=== PATIENT | female | born 1945 | race Caucasian/White ===

== ENCOUNTER → 2019-11-25 15:11 | Outpatient (BNVA) | payer MEDICARE, SELFPAY | PROVIDERS: Family Provider Family Medicine; PCP Family Medicine; Visit Provider Family Medicine | DX: F41.9 Anxiety disorder, unspecified (principal); I10 Essential (primary) hypertension | CPT/HCPCS: 80053; 80061; 85025 ==

== ENCOUNTER → 2020-01-22 11:12 | Outpatient (BNVA) | payer MEDICARE, SELFPAY | PROVIDERS: Family Provider Family Medicine; PCP Family Medicine; Visit Provider Family Medicine | DX: F41.9 Anxiety disorder, unspecified (principal); R32 Unspecified urinary incontinence; N89.8 Other specified noninflammatory disorders of vagina | CPT/HCPCS: 81000 ==

== ENCOUNTER → 2020-02-17 11:45 | Outpatient (BNVA) | payer MEDICARE, SELFPAY | PROVIDERS: Family Provider Family Medicine; PCP Family Medicine; Visit Provider Nurse Practitioner Family | DX: N89.8 Other specified noninflammatory disorders of vagina (principal); R32 Unspecified urinary incontinence; B37.3 Candidiasis of vulva and vagina | CPT/HCPCS: 81000 ==

== ENCOUNTER → 2020-05-24 11:58 | Outpatient (BNVA) | payer MEDICARE, SELFPAY | PROVIDERS: Family Provider Family Medicine; PCP Family Medicine; Visit Provider Family Medicine | DX: E78.5 Hyperlipidemia, unspecified (principal); F32.9 Major depressive disorder, single episode, unspecified; F41.9 Anxiety disorder, unspecified | CPT/HCPCS: 36415; 80053; 80061 ==

== ENCOUNTER 2023-04-03 11:47 | Outpatient (CLI) | payer MEDICARE, SELFPAY ==
--- NOTE | 2023-04-03 12:00 | XR_ITS ---
WS: [email or web address] EXAMINATION: XR lumbar spine f/e only [id number] L-SPINE : 3 views REASON FOR EXAM: ANESTHESIA OF SKIN COMPARISON: None available. ORDER DATE: 04/03/2023 12:12 PM FINDINGS: The lumbar vertebral bodies and the disc spaces are normal in width. In the lumbar vertebra, there i s no evidence of compression deformities. Bones are demineralized. Advanced degenerative disc disease at L5-S1. Less than 2 mm retrolisthesis of L4. No fractures. Prominent atherosclerotic aortic change. Prior cholecystectomy. XR/XR lumbar spine f/e only [id number] IMPRESSION: 1. No lumbar spine instability. 2. Advanced degenerative disc disease L5-S1.
== END 2023-04-03 11:48 | disposition home or self-care (01) ==
LOC: RAD 11:54
PROVIDERS: PCP Family Medicine; Visit Provider Nurse Practitioner
DX: R20.0 Anesthesia of skin (principal); M51.37 Other intervertebral disc degeneration, lumbosacral region
CPT/HCPCS: 72120

== ENCOUNTER 2023-04-26 09:46 | Outpatient (CLI) | payer MEDICARE, SELFPAY ==
--- NOTE | 2023-04-26 09:54 | MR_ITS ---
WS: [id number] MRI LUMBAR SPINE NONCONTRAST TECHNIQUE: Sagittal T1, T2 and STIR imaging. Axial T1 and T2 imaging. CLINICAL INFORMATION: NUMBNESS IN FEET COMPARISON: MRI 2018 FINDINGS: Mild compression superior endplate in the mid thoracic spine at T4. This could be further evaluated w ith thoracic spine MRI. This is new since MRI in 2018. Small central protrusions at T11-12 and T12-L1 . Moderate left T12-L1 foraminal narrowing with a left foraminal protrusion impinges the exiting left T12 nerve root. L1-L2: Mild annular bulging. Narrowing of the subarticular recess. Mild facet arthropathy. Moderate l eft foraminal narrowing. L2-L3: Mild annular bulging. Mild central canal stenosis. Narrowing of the right subarticular recess. Mild facet arthropathy. Mild foraminal narrowing. L3-L4: Slight anterolisthesis. Mild disc bulging with moderate central canal stenosis. Moderate facet arthropathy. Mild left greater than right foraminal narrowing. L4-L5: Mild bulging with a small annular fissure. Moderate to severe central canal stenosis progresse d compared to previous. Impingement traversing L5 nerve roots. Mild bilateral foraminal narrowing. L5-S1: Mild disc bulging with slight effacement of ventral thecal sac. Mild to moderate bilateral for aminal narrowing. Mild facet arthropathy. Right renal cysts the largest measuring 14 mm. Visualized pelvic bony structures: Normal. Paravertebral soft tissues: Normal. IMPRESSION: 1. Moderate to severe central canal stenosis L4-5 progressed compared to previous. 2. Moderate central canal stenosis L3-4 also progressed compared to previous. 3. Mild central canal stenosis L2-3 progressed compared to previous. 4. Left T12-L1 foraminal protrusion with moderate left foraminal narrowing appears progressed. 5. Multilevel foraminal narrowing described above. 6. Anterior wedging in the mid thoracic spine at T4 appears new from the prior MRI. This can be furt her evaluated with thoracic spine MRI.
== END 2023-04-26 09:47 | disposition home or self-care (01) ==
LOC: RAD 09:48
PROVIDERS: PCP Family Medicine; Visit Provider Nurse Practitioner
DX: R20.0 Anesthesia of skin (principal); M48.061 Spinal stenosis, lumbar region without neurogenic claudication; M48.54XA Collapsed vertebra, not elsewhere classified, thoracic region, initial encounter for fracture
CPT/HCPCS: 72148

== ENCOUNTER 2023-05-25 09:08 | Outpatient (CLI) | payer MEDICARE, SELFPAY ==
--- NOTE | 2023-05-25 | US_ITS ---
WS: [id number] RENAL ULTRASOUND HISTORY: Renal Cysts COMPARISON: None available. TECHNIQUE: 2-D and color Doppler imaging of the kidney submitted. Right kidney: 10.1 cm x 4.8 cm x 4.8 cm. Cortex: 1.1 cm Normal size kidney. Simple cortical cyst mid kidney 1.7 x 1.6 x 1.8 cm. No hydronephrosis. Left kidney: 11.0 cm x 4.7 cm x 5.2 cm. Cortex: 1.4 cm Normal echogenicity with no hydronephrosis or mass. Aorta: Normal. Urinary Bladder: Normal distention. IMPRESSION: 1. No hydronephrosis or solid renal mass. 2. Simple cyst RIGHT kidney, maximum diameter 1.8 cm.
--- NOTE | 2023-05-25 | USCV_ITS ---
Joi Herndon Age: 77 Gender: F : 1945 Exam Date: 05/25/2023 09:35 Ordering Phys: Deb Tamayo Technologist: GERARDO Exam Location: [facility] Indication: Family HX of AAA HISTORY: Diameter (cm) AP x Transverse x Length Velocity (cm/s) Waveform Prox Aorta: 1.69 x 1.59 x 60.90 Triphasic Mid Aorta: 1.75 x 1.64 x 66.20 Triphasic Distal Aorta: 1.59 x 1.64 x 66.80 Triphasic Right Iliac Prox: 1.08 x 1.46 x 74.60 Triphasic Left Iliac Prox: 1.03 x 1.22 x 100.80 Triphasic Stent Prox Landing x x Aneurysmal Sac Max x x Lt Lat Sac Dim Rt Lat Sac Dim Stent Dist Landing x x Right Iliac Stent x x Left Iliac Stent x x Right Renal Art Left Renal Art FINDINGS: Comparison: none available. Ectatic abdominal aorta with evidence of atherosclerotic plaque noted. No evidence of abdominal aortic aneurysm. No significant stenosis noted in the abdominal aorta. CONCLUSIONS Ectatic abdominal aorta with evidence of atherosclerotic plaque noted. No evidence of abdominal aortic aneurysm. Dr. Kristin Chapman DO (Electronically Signed) Final Date: 25 May 2023 13:05 S
== END 2023-05-25 09:09 | disposition home or self-care (01) ==
LOC: RAD 09:10
PROVIDERS: PCP Family Medicine; Visit Provider Nurse Practitioner
DX: N28.1 Cyst of kidney, acquired (principal); Z82.49 Family history of ischemic heart disease and other diseases of the circulatory system; I77.811 Abdominal aortic ectasia
CPT/HCPCS: 76706; 76770

== ENCOUNTER → 2023-10-05 15:41 | Outpatient (BNVA) | payer MEDICARE, SELFPAY | PROVIDERS: PCP Family Medicine; Visit Provider Nurse Practitioner | DX: M25.552 Pain in left hip (principal); M16.12 Unilateral primary osteoarthritis, left hip | CPT/HCPCS: 73502 ==

== ENCOUNTER 2023-12-05 11:08 | Outpatient (CLI) | payer MEDICARE, SELFPAY ==
--- NOTE | 2023-12-05 11:14 | MR_ITS ---
WS: [id number] MRI CERVICAL SPINE NONCONTRAST HISTORY: Back pain COMPARISON: None available. Technique: Multiplanar, multisequence noncontrast imaging of the cervical spine. C3 retrolisthesis by 3 mm. C4 retrolisthesis by 1.3 mm. C7 anterolisthesis by 2.8 mm. Disc spaces are all narrowed and desiccated. Osteophytic ridging around all the vertebral bodies. No fractures or marrow edema. Craniocervical junction, C1 and C2 relationship, odontoid process and soft tissues are normal. T4 anterior wedging by 20%. No acute marrow edema. No signal abnormality within the cervical cord. C2-C3: Normal. C3-C4: Osteophytic ridging and facet arthritis. Moderate LEFT foraminal stenosis predominantly due to an osteophyte. C4-C5: Diffuse annular disc bulging with osteophytic ridging and facet arthritis. Mild central and bi lateral foraminal stenosis. C5-C6: Diffuse osteophytic ridging and facet arthritis. Moderate to severe central with severe LEFT a nd moderate RIGHT foraminal stenosis. C6-C7: Mild annular disc bulging with osteophytic ridging with facet arthritis. Mild LEFT foraminal s tenosis. C7-T1: Mild anterolisthesis of C7. Facet joint arthritis. Mild foraminal stenosis. Paraspinal soft tissue are normal. IMPRESSION: 1. Advanced cervical spondylosis and degenerative disc disease. 2. Central and foraminal stenosis throughout the cervical spine due to combination of disc, osteophy tosis and facet disease. 3. C3-4: Moderate LEFT foraminal stenosis predominantly due to osteophyte. 4. C4-5: Mild central and bilateral foraminal stenosis. 5. C5-6: Moderate to severe central with severe LEFT and moderate RIGHT foraminal stenosis. Predomin ately due to osteophyte. 6. C6-7: Mild LEFT foraminal stenosis. 7. C7-T1: Mild bilateral foraminal stenosis.
--- NOTE | 2023-12-05 11:15 | MR_ITS ---
WS: [email or web address] MRI THORACIC SPINE noncontrast HISTORY: Back pain COMPARISON: None available. TECHNIQUE: Multiplanar sequences are performed in sagittal and axial planes. Mild increase in the thoracic kyphosis. Chronic 20% anterior compression fracture of T4. Mild curvatu re and scoliosis. No acute fractures or marrow edema. No signal abnormality within the cord. T1-2: Mild foraminal narrowing and facet arthritis. T2-3: Bilateral facet arthritis, RIGHT greater than LEFT. Moderate RIGHT foraminal stenosis. T3-4: Shallow central disc protrusion with mild lateral facet arthritis and stenosis. T4-5: Mild bilateral foraminal stenosis. T5-6: Mild facet arthritis and LEFT foraminal stenosis. T6-7: Normal. T7-8: Mild bilateral facet joint arthritis and foraminal stenosis. T8-9: Mild bilateral foraminal stenosis and facet arthritis. T9-10: Moderate bilateral facet joint arthritis and foraminal stenosis, RIGHT greater than LEFT. T10-11: Mild RIGHT and moderate LEFT foraminal stenosis and facet arthritis. T11-12: Mild bilateral facet arthritis and LEFT foraminal stenosis. T12-L1: LEFT foraminal disc protrusion was described on the prior MRI of 04/26/2023. Disc protrusion i s reidentified with moderate LEFT foraminal stenosis. IMPRESSION: 1. Multilevel facet joint arthritis and degenerative disc disease throughout the thoracic spine. Mil d to moderate facet joint arthritis and stenoses. 2. Moderate RIGHT foraminal stenosis at T2-3. 3. Moderate bilateral facet arthritis at T9-10 with RIGHT greater than LEFT foraminal stenosis. 4. T10-11: Moderate LEFT foraminal stenosis and facet arthritis. 5. Reidentified is the previously described LEFT foraminal disc protrusion at T12-L1. This disc prot rusion is causing moderate LEFT foraminal stenosis.
== END 2023-12-05 11:09 | disposition home or self-care (01) ==
LOC: RAD 11:08
PROVIDERS: PCP Family Medicine; Visit Provider Physician Assistant Surgical
DX: M54.9 Dorsalgia, unspecified (principal); M51.34 Other intervertebral disc degeneration, thoracic region; M48.04 Spinal stenosis, thoracic region; M51.25 Other intervertebral disc displacement, thoracolumbar region
CPT/HCPCS: 72141; 72146

== ENCOUNTER 2024-08-21 15:41 | Emergency (ER) | payer MEDICARE, SELFPAY ==
[2024-08-21] VITALS (44 sets, daily range): BP systolic 148–197; BP diastolic 81–97; PULSE 60–79; RESP 14–25; TEMP 36.4; O2SAT 91–98; BMI 23.0
--- NOTE | 2024-08-21 17:08 | CTR_ITS ---
PROCEDURE INFORMATION: Exam: CT Head Without Contrast Exam date and time: 08/21/2024 6:11 PM Age: 79 years old Clinical indication: Pain; Headache not specified; Additional info: Headache, right vision changes TECHNIQUE: Imaging protocol: Computed tomography of the head without contrast. Radiation optimization: All CT scans at this facility use at least one of these dose optimization techniques: automated exposure control; mA and/or kV adjustment per patient size (includes targeted exams where dose is matched to clinical indication); or iterative reconstruction. COMPARISON: MR cervical spin wo con* [id number] 12/05/2023 11:36 AM RADIATION DOSE METRICS: Total DLP (mGy-cm): 1010.95 FINDINGS: Brain: There is mild cerebral atrophy. There are mild deep white matter microangiopathic ischemic changes. No acute hemorrhage is identified. No mass or mass effect is identified. Cerebral ventricles: The ventricles are prominent secondary to atrophy. Paranasal sinuses: The paranasal sinuses are clear. Mastoid air cells: The mastoid air cells are clear. Bones: No acute osseous abnormalities are seen. Soft tissues: The soft tissues are within normal limits. CT/CT head wo con* [id number] IMPRESSION: 1. No acute intracranial pathology. 2. Senescent changes.
--- NOTE | 2024-08-21 17:18 | ED_ITS ---
HPI - Headache 2 General: Chief Complaint: Headache Stated Complaint: pains in head and Right eye blurry vision,pressure Time Seen by Provider: 08/21/24 17:06 History of Present Illness: 79-year-old female who presents to the e mergency room with a headache. She has had some intermittent visual changes and a right sided headache for about 4 days now. She went to see her PCP who evaluated her and sent her to the emergency room for CT scan. Vision is grossly normal on exam. She has no focal motor deficits. No slurred speech. No facial droop. Said no cough. No fevers. No chest pain. No abdominal pain. No nausea or vomiting. Related Data Home Medications Medication Instructions Recorded Confirmed Saccharomyces boulardii 250 mg 250 mg PO DAILY 09/23/19 07/28/20 capsule (Daily Probiotic (S. boulardii)) magnesium hydroxide 400 mg/5 mL 15 ml PO BID PRN 09/23/19 07/28/20 oral suspension (Milk of Magnesia) omega 4-vvs-egj-fish oil 1,000 mg 1 cap PO BID 09/23/19 07/28/20 (120 mg-180 mg) capsule (Fish Oil) dupilumab 300 mg/2 mL subcutaneous See Rx Instructions SUBCUT .COMPLEX 01/22/20 07/28/20 syringe (Dupixent) magnesium 200 mg tablet 200 mg PO DAILY 07/28/20 07/28/20 Previous Rx's Medication Instructions Recorded clotrimazole 1 % vaginal cream 1 appful vaginal .hs 14 days #45 02/17/20 grams triamcinolone acetonide 0.025 % 1 applic topical TID 2 days #15 02/17/20 topical ointment grams cetirizine 10 mg capsule (Zyrtec) 10 mg PO DAILY PRN allergy 07/28/20 symptoms #30 caps clonazepam 0.5 mg tablet 0.5 mg PO .COMPLEX PRN anxiety #45 07/28/20 tabs fluticasone propionate 50 2 spray intranasal Q12H PRN nasal 07/28/20 mcg/actuation nasal congestion #9.9 mL spray,suspension (Flonase Allergy Relief) omeprazole 20 mg capsule,delayed 20 mg PO DAILY #30 caps 02/03/21 release clonidine HCl 0.1 mg tablet 0.1 mg PO DAILY #30 tabs 03/22/21 sertraline 100 mg tablet 150 mg (1.5 x 100 mg) PO Q24H #45 06/20/21 tabs Allergies Allergy/AdvReac Type Severity Reaction Status Date / Time Sulfa (Sulfonamide Allergy Intermediate hives Verified 08/21/24 15:54 Antibiotics) Review of Systems 2 Narrative: Constitutional symptoms: Negative except as documented in HPI. Skin symptoms: Negative except as documented in HPI. Eye symptoms: Negative except as documented in HPI. ENMT symptoms: Negative except as documented in HPI. Respiratory symptoms: Negative except as documented in HPI. Cardiovascular symptoms: Negative except as documented in HPI. Gastrointestinal symptoms: Negative except as documented in HPI. Genitourinary symptoms: Negative except as documented in HPI. Musculoskeletal symptoms: Negative except as documented in HPI. Neurologic symptoms: Negative except as documented in HPI. Psychiatric symptoms: Negative except as documented in HPI. Endocrine symptoms: Negative except as documented in HPI. PFSH ED 2 PFSH: Medical History Anxiety Depressed Social History Smoking and tobacco/nicotine status: never used tobacco/nicotine Alcohol intake: current Alcohol intake frequency: 0-2 Drinks per Day Current gender identity: Female Physical Exam 2 Narrative: EXAM NARRATIVE: General: Alert, no acute distress. Skin: Warm, dry. Head: Normocephalic, atraumatic. Neck: Supple, trachea midline. Eye: Extraocular movements are intact. Ears, nose, mouth and throat: mucosa moist. Cardiovascular: Regular, Normal peripheral perfusion. Respiratory: Lungs are clear to auscultation, respirations are non-labored, breath sounds are equal, Symmetrical chest wall expansion. Gastrointestinal: Soft, Nontender, Non distended Musculoskeletal: Normal ROM, no deformity. Neurological: Alert and oriented, No focal neurological deficit observed. Psychiatric: Cooperative, appropriate mood & affect. Course 2 Vital Signs: Vital signs: Vital Signs Temperature 97.5 F L 08/21/24 15:48 Pulse Rate 67 08/21/24 20:30 Respiratory Rate 17 08/21/24 20:30 Blood Pressure 165/82 08/21/24 20:25 Pulse Oximetry 96 08/21/24 20:30 Oxygen Delivery Me thod Room Air 08/21/24 15:48 MDM - Headache Medical Decision Making Medical decision making: Differential diagnosis for this patient presenting with severe headache including but not limited to and based on the above HPI, review of systems and physical exam: Intracranial hemorrhage, stroke, migraine, cluster headache, infections such as influenza, covid Orders placed to evaluate differential diagnosis based on the above differential, HPI and physical exam CT head: Senescent changes. No acute intracranial process. no intracranial hemorrhage, no evidence of infarct. no evidence of acute fracture.This was reviewed and interpreted by myself the ER physician. Lab Review: Laboratory results were reviewed and interpreted by myself the emergency room physician. Lab work is fairly unremarkable I reviewed the patient's medical record. Reexamination: Patient remained stable. No increased work of breathing. No altered mental status. No focal motor deficits. We discussed the likely next step would be to follow-up with a translator and interpreter for a thorough eye exam. Assessment and plan: Headache Visual disturbance - Discharged home - Discussed plan with patient. Answered any questions. - Evaluation and treatment of this problem were appropriate in the emergency setting. Lab Data 08/21/24 19:16 08/21/24 19:[address] 08/21/24 17:08 IMPRESSION: 1. No acute intracranial pathology. 2. Senescent changes. Laboratory Results WBC 5.08 10^3/uL (3.29-11.43) 08/21/24 19:16 RBC 3.82 10^6/uL (3.85-5.65) L 08/21/24 19:16 Hgb 11.80 g/dL (11.27-16.99) 08/21/24 19:16 Hct 37.1 % (36-47) 08/21/24 19:16 MCV 97.1 fl (85-98) 08/21/24 19:16 MCH 30.9 pg (27-33) 08/21/24 19:16 MCHC 31.8 g/dL (30-55) 08/21/24 19:16 RDW 12.9 % (12.1-15.1) 08/21/24 19:16 Plt Count 294 10^3/cmm (157-399) 08/21/24 19:16 MPV 9.4 fL (7.4-10.4) 08/21/24 19:16 Neut % (Auto) 51.3 % 08/21/24 19:16 Lymph % (Auto) 37.8 % 08/21/24 19:16 [place] % (Auto) 7.1 % 08/21/24 19:16 Eos % (Auto) 2.8 % 08/21/24 19:16 Baso % (Auto) 0.8 % 08/21/24 19:16 Neut # (Auto) 2.61 10^3/uL (1.8-7.7) 08/21/24 19:16 Lymph # (Auto) 1.9 10^3/uL (0.8-4.8) 08/21/24 19:16 [place] # (Auto) 0.4 10^3/uL (0.2-0.9) 08/21/24 19:16 Eos # (Auto) 0.1 10^3/uL (0.0-0.8) 08/21/24 19:16 Baso # (Auto) 0.0 10^3/uL (0.0-0.1) 08/21/24 19:16 Nucleated RBC % (auto) 0 % 08/21/24 19:16 Nucleated RBCs # 0.0 /100WBC 08/21/24 19:16 Sodium 138 mmol/L (136-145) 08/21/24 19:16 Potassium 4.2 mmol/L (3.5-5.1) 08/21/24 19:16 Chloride 103 mmol/L (98-107) 08/21/24 19:16 Carbon Dioxide 24 mmol/L (22-29) 08/21/24 19:16 Anion Gap 15.2 (5-19) 08/21/24 19:16 BUN 12 mg/dL (8-23) 08/21/24 19:16 Creatinine 0.6 mg/dL (0.5-0.9) 08/21/24 19:16 GFR Calculation Not Reportable 08/21/24 19:16 Glucose 90 mg/dL (65-115) 08/21/24 19:16 Calculated Osmolality 285 mOsm/kg (285-295) 08/21/24 19:16 Calcium 10.1 mg/dL (8.5-10.5) 08/21/24 19:16 Total Bilirubin 0.3 mg/dL (0.15-1.2) 08/21/24 19:16 AST 14 U/L (0-32) 08/21/24 19:16 ALT 10 U/L (0-33) 08/21/24 19:16 Alkaline Phosphatase 62 U/L (35-105) 08/21/24 19:16 Total Protein 7.6 g/dL (6.6-8.7) 08/21/24 19:16 Albumin 4.0 g/dL (3.5-5.2) 08/21/24 19:16 Globulin 3.6 g/dL (1.3-4.6) 08/21/24 19:16 All radiology interpretation(s) finalized by discharge Discharge Plan Discharge Patient Disposition: Home Clinical Impression: Headache, Visual disturbance Condition: Stable Prescriptions: No Action Dupixent Syringe 300 mg/2 mL syringe See Rx Instructions SUBCUT .COMPLEX Rx Instructions: SUBCUT every 2 weeks; clotrimazole 1 % cream 1 appful VAGINAL .hs 14 Days Qty: 45 2RF Rx Instructions: Apply externally twice a day for 7 days as well. triamcinolone acetonide 0.025 % ointment 1 applic TOPICAL TID 2 Days Qty: 15 0RF fluticasone propionate [Flonase Allergy Relief] 50 mcg/actuation spray,suspension 2 spray INTRANASAL Q12H PRN (Reason: nasal congestion) Qty: 9.9 5RF Zyrtec 10 mg capsule 10 mg PO DAILY PRN (Reason: allergy symptoms) Qty: 30 11RF clonazepam 0.5 mg tablet 0.5 mg PO .COMPLEX PRN (Reason: anxiety) Qty: 45 1RF Rx Instructions: 0.5 mg PO 1/2 am, 1 at bedtime PRN; Daily Probiotic (S. boulardii) 250 mg capsule 250 mg PO DAILY magnesium hydroxide [Milk of Magnesia] 400 mg/5 mL suspension 15 ml PO BID PRN omega 6-htf-akh-fish oil [Fish Oil] 1,000 mg (120 mg-180 mg) capsule 1 cap PO BID magnesium 200 mg tablet 200 mg PO DAILY omeprazole 20 mg capsule,delayed release(DR/EC) 20 mg PO DAILY Qty: 30 11RF clonidine HCl 0.1 mg tablet 0.1 mg PO DAILY Qty: 30 5RF sertraline 100 mg tablet 150 mg PO Q24H Qty: 45 4RF Discharge Orders: Discharge ED (Routine); Ordered 08/21/24 Ordered By: Judie Patton Referrals: Pierre Gillette DO [Primary Care Provider] - Discharge Diet: Usual diet Discharge Activity: Increase activity as tolerated Patient Instructions: Opioid Safety, Pain Management Activity Restrictions/Additional Instructions: You likely need to have follow-up with an translator and interpreter in the near future. Return to your PCP as soon as possible. If symptoms worsen please return to the emergency room. Thank you for choosing [facility] for your healthcare needs today. Please realize this is an emergency room and that we are providing you with a medical screening exam and this may not be complete and all inclusive of all the testing and or work up that you may need to determine your ailment or severity of your illness. You have been screened and evaluated and felt safe for discharge. Health conditions do change or evolve sometimes and as such it is important that you follow up with your Primary Doctor to be re checked, 3-5 days is a general good time frame for follow up. You are always welcome to return to the ED for re assessment if your symptoms are worsening or you have new concerns Coding Level of Care Code ED It Training Specialist for Ayo Castellano
[2024-08-21 19:40] LABS: Basophils % 0.8 %; Eosinophils # 0.1 10^3/uL (0.0-0.8); Eosinophils % 2.8 %; Hematocrit 37.1 % (36-47); Lymphocytes # 1.9 10^3/uL (0.8-4.8); Lymphocytes % 37.8 %; Mean Corpuscular HGB Conc 31.8 g/dL (30-55); Mean Corpuscular Hemoglobin 30.9 pg (27-33); Mean Corpuscular Volume 97.1 fl (85-98); Mean Platelet Volume 9.4 fL (7.4-10.4); Monocytes # 0.4 10^3/uL (0.2-0.9); Monocytes % 7.1 %; Neutrophils # 2.61 10^3/uL (1.8-7.7); Neutrophils % 51.3 %; Nucleated Red Blood Cells % 0 %; Platelet Count 294 10^3/cmm (157-399); Red Blood Count 3.82 10^6/uL (3.85-5.65); Red Cell Distribution Width 12.9 % (12.1-15.1); White Blood Count 5.08 10^3/uL (3.29-11.43)
[2024-08-21 20:04] LABS: Alkaline Phosphatase 62 U/L (35-105); Chloride 103 mmol/L (98-107); Potassium 4.2 mmol/L (3.5-5.1); Sodium 138 mmol/L (136-145)
[2024-08-21 20:32] LABS: Alanine Aminotransferase 10 U/L (0-33); Anion Gap 15.2 (5-19); Aspartate Amino Transferase 14 U/L (0-32); Blood Urea Nitrogen 12 mg/dL (8-23); Calcium 10.1 mg/dL (8.5-10.5); Carbon Dioxide 24 mmol/L (22-29); Creatinine Clr Calc Pharmacy 47.9096; Globulin 3.6 g/dL (1.3-4.6); Glucose 90 mg/dL (65-115); Osmolality Calculated 285 mOsm/kg (285-295); Total Bilirubin 0.3 mg/dL (0.15-1.2); Total Protein 7.6 g/dL (6.6-8.7)
== END 2024-08-21 20:56 | disposition home or self-care (01) ==
PROVIDERS: Emergency Provider Emergency Medicine; PCP Family Medicine
DX: R51.9 Headache, unspecified (principal); H53.9 Unspecified visual disturbance
CPT/HCPCS: 36415; 70450; 80053; 85025; 99284